=== PATIENT | female | born 1990 | race Caucasian/White ===

== ENCOUNTER 2022-07-27 09:08 | Emergency (ER) | payer OTHER, SELFPAY ==
--- NOTE | 2022-07-27 09:10 | ED.DENTAL ---
HPI - Dental/Oral General Chief complaint: Dental/Oral Stated complaint: Toothache Time Seen by Provider: 07/27/22 09:11 Source: patient and RN notes reviewed History of Present Illness HPI Narrative: patient is a 32-year-old female who presents to the Urgent Care with complaints of upper right and lower dental pain. Patient states it has been ongoing for at least 1 week. States that she fractured the Teeth a few months ago. Patient has been taking Tylenol. Denies any fever, nausea or vomiting. States that she does have a dental appointment on the 21 of August. No other acute complaints. No acute distress noted. Patient aware of the plan of care. Some parts of this dictation were generated by voice recognition software and may contain typographical and/or grammatical inaccuracies. Related Data Allergies Allergy/AdvReac Type Severity Reaction Status Date / Time Cephalosporins Allergy Unknown HIVES Unverified 07/27/22 09:31 Review of Systems Review of Systems: CONSTITUTIONAL: Denies fever, chills, or sweats. EYES: Denies visual changes, redness, or discharge. ENT: Denies rhinorrhea, congestion, sore throat, or otalgia. reports right upper and lower dental pain CARDIOVASCULAR: Denies chest pain, palpitations, or edema. RESPIRATORY: Denies cough or dyspnea. GASTROINTESTINAL: Denies abdominal pain, nausea, vomiting, or diarrhea. GENITOURINARY: Denies dysuria or hematuria. SKIN: Denies rash or itching. MUSCULOSKELETAL: Denies back pain, joint pain, or myalgia. NEUROLOGIC: Denies headache, numbness, or weakness. All other systems reviewed are negative, except as documented in HPI. PMFSH Comments At the time of my signature, I reviewed and agree with the nursing past medical, surgical, social, and family history. There is no relevant family history pertinent to the patient complaint. Exam Narrative: GENERAL: This is a well-nourished, well-developed patient. tearful HEAD: normocephalic, atraumatic. EYES: PERRL. Sclera clear/white. Vision is grossly intact. EARS: External ears normal NOSE: External nose normal with no obvious nasal discharge, nares without redness, no rhinorrhea. THROAT: Mucous membranes moist, posterior pharynx clear. DENTAL: avulsed 1st premolar to the right upper, tooth number 28 with impacted avulsed carious tooth number 32 with moderate edema and erythema NECK: Neck supple, non-tender without lymphadenopathy SKIN: warm, intact with no suspicious lesions or rash, good texture and turgor. NEURO: awake, alert, and oriented to person, place and time. There were no obvious focal neurologic abnormalities. EXTREMITIES: No clubbing, cyanosis, or edema. Course Course Level of Care: Express Care Visit Vital Signs Vital signs: Vital Signs Temperature 98.5 F 07/27/22 09:21 Pulse Rate 60 07/27/22 09:21 Respiratory Rate 16 07/27/22 09:21 Blood Pressure 111/56 L 07/27/22 09:21 Pulse Oximetry 99 07/27/22 09:21 Oxygen Delivery Room Air 07/27/22 09:21 Temperature 98.5 F 07/27/22 09:21 Pulse Rate 60 07/27/22 09:21 Respiratory Rate 16 07/27/22 09:21 Blood Pressure 111/56 L 07/27/22 09:21 Pulse Oximetry 99 07/27/22 09:21 Oxygen Delivery Room Air 07/27/22 09:21 reviewed MDM - Dental/Oral MDM Narrative Medical decision making narrative: advised patient to complete the oral antibiotic regimen as prescribed. Be sure to eat and drink with the medication. Use the prescription mouthwash as directed. Use the ibuprofen as needed for pain or discomfort. Continue ice / heat. Follow-up with your dentist as scheduled on August 21. Differential Diagnosis Differential diagnosis: Likely gingival abscess, dental caries, toothache, dental abscess, fracture of tooth and aphthous ulcer Critical Care Time Critical Care Time Critical Care Time: No Discharge Plan Discharge Clinical Impression: Dental caries, Dental abscess Patient Disposition: Home, Self-Care Co
[2022-07-27 09:21] VITALS: BP 111/56; PULSE 60; RESP 16; TEMP 36.9; O2SAT 99
== END 2022-07-27 09:54 | disposition home or self-care (01) ==
PROVIDERS: Emergency Provider Nurse Practitioner Family
DX: K02.9 Dental caries, unspecified (principal); K04.7 Periapical abscess without sinus
CPT/HCPCS: 99203; G0463